=== PATIENT | male | born 1955 | race Caucasian/White ===

== ENCOUNTER → 2016-12-28 | Outpatient (CLI) | payer BC | END | disposition home or self-care (01) | LOC: PCVCIMAG 12:44 | PROVIDERS: ATTEND Nuclear Medicine Nuclear Cardiology | DX: I70.213 Atherosclerosis of native arteries of extremities with intermittent claudication, bilateral legs (principal); I25.10 Atherosclerotic heart disease of native coronary artery without angina pectoris; I77.9 Disorder of arteries and arterioles, unspecified; E78.00 Pure hypercholesterolemia, unspecified; I10 Essential (primary) hypertension | CPT/HCPCS: 80061; 93005; 93925; G0463 ==

== ENCOUNTER → 2017-07-10 | Outpatient (CLI) | payer BC ==
--- NOTE | 2017-07-10 14:14 | PCVCIMAG ---
EXAM: BILATERAL CAROTID DUPLEX INDICATION: Carotid Occlusive Disease. FINDINGS: Doppler Measurements (centimeters per second): RIGHT: Peak CCA-85, Peak ECA-189, Diastolic ICA-22, Peak ICA-73, ICA/CCA Ratio-0.9. LEFT: Peak CCA-79, Peak ECA-72, Diastolic ICA-24, Peak ICA-68, ICA/CCA Ratio-0.8. RIGHT CAROTID: The carotid bulb has moderate plaque. The proximal internal carotid artery shows <40% stenosis. The common carotid artery shows no significant stenosis. The external carotid artery shows 60% stenosis. LEFT CAROTID: The carotid bulb has mild plaque. The proximal internal carotid artery shows <40% stenosis. The common carotid artery shows no significant stenosis. The external carotid artery shows no significant stenosis. Antegrade flow in both vertebral arteries. IMPRESSION: <40% stenosis of the right internal carotid artery with moderate plaque. <40% stenosis of the left internal carotid artery with mild plaque. LOC:[place] [id number]
--- NOTE | 2017-07-10 16:13 | PCVCIMAG ---
EXAM: BILATERAL LOWER EXTREMITY ARTERIAL DUPLEX INDICATION: Peripheral Arterial Disease. Leg pain. FINDINGS: Right Leg: Moderate velocity elevation of 355 cm/s in the common femoral artery consistent with 60-70% stenosis. The profunda femoral artery is patent. Increased systolic velocity of 470 cm/s in the [place] mid superficial femoral artery consistent with 90% stenosis. The popliteal artery is patent. The anterior tibial artery is occluded. The peroneal artery and posterior tibial arteries show adequate patency. Left Leg: Common femoral artery is patent. 90% stenosis origin the profunda femoral artery. Elevated velocities up to 417 cm/s in the mid superficial femoral artery within prior stent consistent with 80-90% restenosis. The popliteal artery is patent. There is occlusion of the proximal anterior tibial artery and throughout the posterior tibial artery. The peroneal artery is patent. 80% stenosis upper tibioperoneal trunk. IMPRESSION: Interval development of 90% stenosis mid [place] right superficial femoral artery. Unchanged 60-70% stenosis throughout the right common femoral artery. Interval development of 80-90% restenosis within the midportion of the left superficial femoral artery within prior stent. 80% stenosis left tibioperoneal trunk. Occlusion of the right anterior and the left anterior and posterior tibial arteries. LOC:[id number]
== END | disposition home or self-care (01) ==
LOC: PCVCIMAG 13:13
PROVIDERS: ATTEND Internal Medicine Cardiovascular Disease
DX: I65.23 Occlusion and stenosis of bilateral carotid arteries (principal); I70.202 Unspecified atherosclerosis of native arteries of extremities, left leg; I70.291 Other atherosclerosis of native arteries of extremities, right leg; I25.10 Atherosclerotic heart disease of native coronary artery without angina pectoris; I77.9 Disorder of arteries and arterioles, unspecified; I10 Essential (primary) hypertension; E78.00 Pure hypercholesterolemia, unspecified; J44.9 Chronic obstructive pulmonary disease, unspecified; Z87.891 Personal history of nicotine dependence; Z95.828 Presence of other vascular implants and grafts; Z79.82 Long term (current) use of aspirin; Z79.899 Other long term (current) drug therapy
CPT/HCPCS: 36415; 80061; 93005; 93880; 93925; G0463

== ENCOUNTER → 2017-07-16 | Outpatient (CLI) | payer BC ==
[~2017-07-16] MED LIST: DIAZEPAM 10 MG TABLET. ONE; EPTIFIBATIDE BOLUS 2,000 MCG/ML 10ML VIAL. IV ONE; HEPARIN SODIUM 5,000 UNIT/ML VIAL for PCVC. ONE; HEPARIN for ARTERIAL LINE 1,500 ML ONE; IODIXANOL 270 MG/ML 100 ML VIAL. ONE; IOHEXOL 350 MG/ML 100 ML VIAL. ONE; IOHEXOL 350 MG/ML 50 ML VIAL. ONE; IV NORMAL SALINE 500ML BAG 500 ML ONE; LIDOCAINE 1% Multi-Dose 20 ML VIAL. ONE; MIDAZOLAM HCL/PF 2 MG/2 ML VIAL. ONE; PROTAMINE 50 MG/5 ML VIAL. IV ONE; fentaNYL PF VIAL 100 MCG/2 ML VIAL ONE
--- NOTE | 2017-07-16 11:16 | PCVCINTER ---
EXAM: 1. AORTOGRAM AND BILATERAL LOWER EXTREMITY RUNOFF ANGIOGRAM 2. BILATERAL RENAL ANGIOGRAPHY 3. LEFT SUPERFICIAL FEMORAL ARTERY ATHERECTOMY AND STENT PLACEMENT. 4. SECONDARY THROMBECTOMY LEFT SUPERFICIAL FEMORAL ARTERY. 5. DRUG COATED BALLOON ANGIOPLASTY LEFT SUPERFICIAL FEMORAL ARTERY. 6. LEFT TIBIOPERONEAL TRUNK ATHERECTOMY AND STENT PLACEMENT. INDICATION: Peripheral arterial disease. Coronary artery disease. Bilateral lower terminal lifestyle limiting claudication. Hypertension. Renal atherosclerosis. PROCEDURE: Procedure and risks of angiography intervention is appropriate including limb loss stroke and were discussed with the patient's family and consent obtained. The patient's right groin was prepped abnormal sterile fashion. IV conscious sedation was used to procedure with appropriate monitoring 8:15 AM through 9:45 AM. Ultrasound was used to interrogate the right groin and showed the right common femoral artery to be patent. A permanent spot film was obtained. Under ultrasound guidance access into the right common femoral artery was obtained and a 5 [place] sheath was placed. Through this a 5 [place] flush catheter was placed into the abdominal aorta at the level of the renal arteries and AP aortogram was performed. Catheter was positioned at the aortic bifurcation and both oblique views of the pelvis were obtained. Catheter was positioned into the right external iliac artery and right leg runoff angiography was performed. Catheter was exchanged for a visceral catheter was placed into the right renal arteries and right renal angiograms obtained. Catheter was placed into the the left renal arteries and left renal angiograms were obtained. Catheter was advanced to the level of the left external iliac artery and left leg runoff angiography was obtained. Patient was given 4500 units of heparin. A 6 [place] crossover sheath was placed via the right groin to the level of the left common femoral artery. Atherectomy of the left tibioperoneal trunk was performed with 0.9 mm Spectranetics laser atherectomy catheter in the standard fashion. Stent placement across the areas of high-grade stenosis in the left tibioperoneal trunk was carried out with a 3.0 x 30 Oh BiBitronic integrity stent with subsequent dilatation to 3.2 mm. Atherectomy of the left superficial femoral artery was performed with 0.9 mm Spectranetics laser atherectomy catheter in the standard fashion. Following atherectomy small areas of thrombus were observed and because of this secondary thrombectomy throughout the left superficial femoral artery was carried out with mechanical suction thrombectomy catheter in the standard fashion. Minimal debris was removed. Stent placement across the areas of high-grade stenosis in the left superficial femoral artery was carried out with a 6 x 120 Smart control stent with subsequent dilatation to 5.0 mm. Following this drug coated balloon angioplasty of the left superficial femoral artery was carried out with a 5 x 150, 5 x 150, and 5 x 60 Oh BiBitronic [employer] TECHNICAL WRITER catheter. Follow-up angiogram was performed. Catheters and wires removed. Sheath was left in place for cardiac catheterization to follow. No immediate complications. FINDINGS: Aortogram: There is one right and 3 left renal arteries. Mild plaque infrarenal abdominal aorta without significant stenosis. Pelvis: Previous stents in the right and left common and external iliac artery should maintaining good patency. The left internal iliac artery is small in size. High-grade stenosis origin right internal iliac artery. Extensive plaque in the mid and upper right common femoral artery results in 60% stenosis. The profunda femoral artery is patent. Moderate plaque left common femoral artery causing mild stenosis. 90% stenosis at the origin of the profunda femoral artery. Right renal artery: Mild plaque proximal vessel does not cause significant stenosis. Left renal artery: There are 3 left renal arteries all of which show adequate patency. Right le% stenosis upper superficial femoral artery. 95% stenosis mid [place] superficial femoral artery. The popliteal artery is patent. The anterior tibial artery is occluded throughout. Mild stenosis origin tibioperoneal trunk. The peroneal artery and posterior tibial arteries are patent. Left leg: There is a mild stenosis throughout the previous stent the mid and upper superficial femoral artery. 70-80% stenoses distal [place] superficial femoral artery. Moderate plaque popliteal artery shows mild diffuse stenosis distally at the origin of the tibioperoneal trunk is a 95% stenosis. The anterior tibial artery is occluded throughout. The posterior tibial is small in size. The peroneal artery is a dominant runoff vessel and shows good patency. Left superficial femoral artery: Following procedure as above vessel shows good patency. Left tibioperoneal trunk: Following procedure as above vessel shows good patency. IMPRESSION: Areas of significant stenosis in the distal left superficial femoral artery with critical stenosis origin left tibioperoneal trunk were treated as above with good patency restored. 95% critical stenosis mid [place] right superficial femoral artery. Patient will return in a few days for intervention to the right superficial femoral artery. I will follow-up with the patient in 3-4 months in the office. LOC:[id number]
--- NOTE | 2017-07-19 08:42 | PCVCINTER ---
APPROVED REPORT Patient Details Patient Status: Room #: 2 The patient is a 62 year-old Male Event Personnel Julian Tarango RN, Shamir Diallo MD, Petey Quiroz RT(R)(), Susie Castillo RT(R) Risk Factors Arterial HypertensionDysplipidemia (Type: 1), Family HistoryPeripheral Vascular Disease, Chronic Lung DiseaseHypercholesterolemia, Last Creatanine 1Tobacco History (Former) Previous Procedures/Diagnoses Previous CABG, Previous Femoral Procedure, Peripheral vascular disease->Positive non-invasive/invasive test, COPD, Hypertension, PVD, CAD Procedure Narrative The patient was brought electively to the Cardiac Catheterization Laboratory and was prepped and draped in a sterile manner. The right femoral was infiltrated with 1% Lidocaine subcutaneous anesthesia. The right femoral accessed via ultrasound guidance. A 6F sheath was inserted into the right femoral artery. Coronary angiography was performed using coronary diagnostic catheters. The right coronary system was accessed and visualized with a JR4 catheter. The left coronary system was accessed and visualized with a JL4 catheter. The left ventricle was accessed and visualized with a Straight Pigtail catheter. Left ventriculogram was performed in MORENO projection. Hemostasis was obtained with manual pressure following sheath removal without any complications. There was no hematoma. Hemodynamics The right atrial mean pressure is 12 mmHg. The right ventricular pressure is 132 mmHg. The pulmonary artery pressure is 132 mmHg with a mean of 12 mmHg. The mean pulmonary capillary wedge pressure is 12 mmHg. The aortic pressure is 120/64 mmHg with a mean of 89 mmHg. The left ventricular pressure is 132/8 mmHg with a mean of 12 mmHg. Conclusion #1 normal left ventricular size mild global hypokinesis EF 50% range #2 left main is large and free of disease giving rise to an LAD which proximally occluded with high-grade calcification and a large circumflex artery which fills the distal inferior wall the OM branch is occluded #3 the LAD high-grade disease proximally filling to septal perforators and then occludes #4 dominant right coronary artery proximally occluded #5 SVG to OM1 OM 2 widely pain with mild irregularities #6 SVG to PDA is mildly ectatic filling a relatively small PDA and posterior lateral system diffusely diseased #7 MAK to LAD is intact the MAK is widely patent the LAD is diffusely disease vessel and stops short of the apex. Relatively small in caliber in addition but brisk flow some collateral filling to a small OM branch Recommendations and plan continue aggressive risk factor modification. No indication for intervention. No lifting for 48 hours no line tub Jacuzzi or Summers for a week
== END | disposition home or self-care (01) ==
LOC: PCVCINTER 07:05
PROVIDERS: ATTEND Nuclear Medicine Nuclear Cardiology
DX: I70.213 Atherosclerosis of native arteries of extremities with intermittent claudication, bilateral legs (principal); I25.10 Atherosclerotic heart disease of native coronary artery without angina pectoris; I10 Essential (primary) hypertension; I70.1 Atherosclerosis of renal artery
CPT/HCPCS: 36252; 37186; 37227; 37231; 75716; 76937; 93459; 99152; 99153; C1725; C1751; C1757; C1769; C1876; C1885; C1894; C2623; J0690; J1327; J1644; J2250; J3010; J7040; Q9967; 93458

== ENCOUNTER → 2017-07-18 | Outpatient (CLI) | payer BC ==
[~2017-07-18] MED LIST changes: -HEPARIN for ARTERIAL LINE 1,500 ML ONE; -IOHEXOL 350 MG/ML 100 ML VIAL. ONE; -IOHEXOL 350 MG/ML 50 ML VIAL. ONE; +IV NORMAL SALINE 1000ML BAG 1,000 ML ONE; +LIDOCAINE 1%/EPI 1:100,000 20 ML VIAL. ONE; +hydrALAZINE 20 MG/ML VIAL. ONE
--- NOTE | 2017-07-18 11:00 | PCVCINTER ---
EXAM: 1. RIGHT SUPERFICIAL FEMORAL ARTERY ATHERECTOMY AND STENT PLACEMENT. 2. SECONDARY THROMBECTOMY RIGHT SUPERFICIAL FEMORAL ARTERY. 3. DRUG COATED BALLOON ANGIOPLASTY RIGHT COMMON FEMORAL AND SUPERFICIAL FEMORAL ARTERY. INDICATION: Peripheral arterial disease. Coronary artery disease. Lifestyle limiting claudication.. Hypertension. Renal atherosclerosis. PROCEDURE: Procedure and risks of angiography intervention is appropriate including limb loss stroke and were discussed with the patient's family and consent obtained. The patient's left groin was prepped abnormal sterile fashion. IV conscious sedation was used to procedure with appropriate monitoring from 8:15 AM through 9:45 AM. Ultrasound was used to interrogate the left groin and showed the left common femoral artery to be patent. A permanent spot film was obtained. Under ultrasound guidance access into the left common femoral artery was obtained and a 5 Indonesian sheath was placed. Through this a 5 [place] flush catheter was placed into the abdominal aorta at the level of the renal arteries and AP aortogram was performed. Catheter was positioned at the aortic bifurcation and both oblique views of the pelvis were obtained. Catheter was positioned into the left external iliac artery and left leg runoff angiography was performed. Catheter was exchanged for a visceral catheter which was placed into the right renal arteries and right renal angiograms obtained. Catheter was placed into the the left renal arteries and left renal angiograms were obtained. Catheter was advanced to the level of the right external iliac artery and right leg runoff angiography was obtained. Patient was given 4500 units of heparin. A 6 Indonesian crossover sheath was placed via the left groin to the level of the right common femoral artery. Atherectomy of the right common femoral and superficial femoral artery was performed with 2.0 mm Lightpoint [employer] laser atherectomy catheter in the standard fashion. Following atherectomy small areas of thrombus were observed and because of this secondary thrombectomy throughout the right superficial femoral artery was carried out with mechanical suction thrombectomy catheter in the standard fashion. Minimal debris was removed. Stent placement across the areas of high-grade stenosis in the right mid/distal superficial femoral artery was carried out with a 6 x 150 Smart control stent with subsequent dilatation to 5.0 mm. Following this drug coated balloon angioplasty of the right mid/distal superficial femoral artery was carried out with a 5 x 120 and 5 x 40 SpectranetAccess Scientific Stellerex CHEMICAL COMPOUNDER HELPER catheter. Stent placement across the areas of high-grade stenosis in the right proximal superficial femoral artery was carried out with a 6 x 20 Smart control stent with subsequent dilatation to 5.0 mm. Following this drug coated balloon angioplasty of the right common femoral artery and upper superficial femoral artery was carried out with a 5 x 120 [employer] Sarha Bong CHEMICAL COMPOUNDER HELPER catheter. Additional angioplasty in the right common femoral artery was carried out with a 6 x 4 PowerFlex CHEMICAL COMPOUNDER HELPER catheter. Follow-up angiogram was performed. Catheters and wires removed. Sheath was removed and hemostasis obtained using the Exoseal device. No immediate complications. FINDINGS: Right common femoral artery: Following procedure as above vessel shows satisfactory patency. Right superficial femoral femoral artery: Following procedure as above vessel shows good patency. IMPRESSION: Areas of significant stenosis in the right common femoral artery and superficial femoral artery were treated as above with good patency restored as reviewed above. impression follow up LOC:[id number]
== END | disposition home or self-care (01) ==
LOC: PCVCINTER 07:14
PROVIDERS: ATTEND Nuclear Medicine Nuclear Cardiology
DX: I70.211 Atherosclerosis of native arteries of extremities with intermittent claudication, right leg (principal); I25.10 Atherosclerotic heart disease of native coronary artery without angina pectoris; I10 Essential (primary) hypertension; I70.1 Atherosclerosis of renal artery
CPT/HCPCS: 37186; 37227; 76937; 99152; 99153; C1725; C1751; C1757; C1760; C1769; C1876; C1885; C1894; J0690; J1327; J1644; J2250; J3010; J3490; J7030; J7040; 75710; J0360

== ENCOUNTER → 2017-11-16 | Outpatient (CLI) | payer BC | END | disposition home or self-care (01) | LOC: PCVCIMAG 14:43 | DX: I73.9 Peripheral vascular disease, unspecified (principal); I10 Essential (primary) hypertension | CPT/HCPCS: 93925 ==

== ENCOUNTER → 2018-05-20 | Outpatient (CLI) | payer BC ==
--- NOTE | 2018-05-20 14:52 | PCVCIMAG ---
EXAM: BILATERAL CAROTID DUPLEX INDICATION: Carotid Occlusive Disease. FINDINGS: Doppler Measurements (centimeters per second): RIGHT: Peak CCA-55, Peak ECA-74, Diastolic ICA-22, Peak ICA-61, ICA/CCA Ratio-1.1. LEFT: Peak CCA-63, Peak ECA-80, Diastolic ICA-25, Peak ICA-52, ICA/CCA Ratio-0.8. RIGHT CAROTID: The carotid bulb has moderate plaque. The proximal internal carotid artery shows <40% stenosis. The common carotid artery shows no significant stenosis. The external carotid artery shows no significant stenosis. LEFT CAROTID: The carotid bulb has mild plaque. The proximal internal carotid artery shows <40% stenosis. The common carotid artery shows no significant stenosis. The external carotid artery shows no significant stenosis. Antegrade flow in both vertebral arteries. IMPRESSION: <40% stenosis of the right internal carotid artery with moderate plaque. <40% stenosis of the left internal carotid artery with mild plaque. LOC:[place] [id number]
--- NOTE | 2018-05-20 14:57 | PCVCIMAG ---
EXAM: BILATERAL LOWER EXTREMITY ARTERIAL DUPLEX INDICATION: Peripheral Arterial Disease. Leg pain. FINDINGS: Right Leg: Mild restenosis common femoral artery at site of previous DCB treatment. [place] femoral artery is patent. Superficial femoral artery and popliteal artery are patent. Previous superficial femoral artery stent is maintaining satisfactory patency. Occlusion throughout the anterior tibial artery is unchanged. The peroneal and posterior tibial arteries are patent. Left Leg: Common femoral artery is patent. 90% stenosis origin [place] femoral artery. Superficial femoral artery and popliteal artery are patent. Previous stent throughout the superficial femoral artery is patent. Previous tibioperoneal trunk stent is patent. Occlusion throughout the anterior tibial artery is unchanged. The peroneal artery and posterior tibial artery are patent. IMPRESSION: Unchanged occlusion throughout the right anterior tibial artery. Otherwise flow limiting stenosis in the right lower extremity. Previous right and left superficial femoral artery stents are maintaining satisfactory patency. 90% stenosis origin left [place] femoral artery. Left tibioperoneal trunk stent remains patent. LOC:[id number]
== END | disposition home or self-care (01) ==
LOC: PCVCIMAG 14:13
PROVIDERS: ATTEND Nuclear Medicine Nuclear Cardiology
DX: I65.23 Occlusion and stenosis of bilateral carotid arteries (principal); I73.9 Peripheral vascular disease, unspecified
CPT/HCPCS: 93880; 93925

== ENCOUNTER → 2019-02-13 | Outpatient (CLI) | payer BC ==
--- NOTE | 2019-02-13 09:45 | PCVCIMAG ---
EXAM: BILATERAL LOWER EXTREMITY ARTERIAL DUPLEX INDICATION: Peripheral Arterial Disease. Leg pain. FINDINGS: Right Leg: Common femoral and profunda femoral arteries are patent. Superficial femoral artery and popliteal artery are patent. Previous stent superficial femoral artery remains patent. Unchanged occlusion of the anterior tibial artery. The peroneal and posterior tibial arteries are patent. Left Leg: Common femoral and [place] femoral arteries are patent. Superficial femoral artery and popliteal artery are patent. Previous stent superficial femoral artery remains patent. Occlusion throughout the anterior tibial artery is unchanged. Tibioperoneal trunk stent is patent. Peroneal and posterior tibial arteries are patent. IMPRESSION: Unchanged occlusion right anterior tibial artery. Otherwise no flow limiting stenosis in the right lower extremity. Previous right superficial femoral artery stent remains patent. Unchanged occlusion left anterior tibial artery. Otherwise no flow limiting stenosis in the left lower extremity. Previous left superficial femoral artery and tibioperoneal trunk stents remain patent. LOC:[id number]
== END | disposition home or self-care (01) ==
LOC: PCVCIMAG 08:00
PROVIDERS: ATTEND Nuclear Medicine Nuclear Cardiology
DX: I73.9 Peripheral vascular disease, unspecified (principal)
CPT/HCPCS: 93925